=== PATIENT | male | born 1985 | race Caucasian/White ===

== ENCOUNTER 2018-05-29 10:31 | Emergency (ER) | payer MEDICAID, SELFPAY ==
[2018-05-29 10:33] VITALS: BP 118/50; PULSE 63; RESP 14; TEMP 37.2; O2SAT 98
[2018-05-29 10:53] LABS: Bilirubin Negative (Negative); Blood Negative (Negative); Clarity Clear; Glucose Negative (Negative); Ketones Negative (Negative); Leukocyte Esterase Negative (Negative); Nitrite Negative (Negative); pH 6.5 (5-8)
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
[2018-05-29] MEDS: Normal Saline 1,000 ML 1000 ML IV (11:24)
[2018-05-29 11:33] VITALS: BP 100/51; PULSE 62; RESP 18; TEMP 37.1; O2SAT 97
[2018-05-29] MEDS: Omnipaque 350 MG/ML 100 ML BTL IV (11:38)
[2018-05-29 12:18] LABS: Abs Immature Grans 0.01 k/cumm (0.0-0.09); Absolute Basophil Count 0.04 k/cumm (0.0-0.2); Absolute Eosinophil Count 0.22 k/cumm (0.0-0.7); Absolute Lymphocyte Count 0.83 k/cumm (1.2-3.4); Absolute Monocyte Count 0.97 k/cumm (0.11-0.7); Absolute Neutrophil Count 1.77 k/cumm (1.2-6.7); Eosinophils % 5.7; HGB 10.1 g/dL (13.5-17.5); Immature Grans % 0.3; Lymphocytes % 21.6; Mean Corp. HGB Concentration 33.7 g/dL (32.0-36.0); Mean Corpuscular Hemoglobin 39.3 pg (27.0-33.0); Mean Corpuscular Volume 116.7 fL (80-95); Mean Platelet Volume 9.2 fL (8.0-11.0); Monocytes % 25.3; Neutrophils % 46.1; RBC 2.57 m/cumm (4.50-6.00); RBC Distribution Width 14.4 % (11.8-14.1); White Blood Cell Count 3.84 k/cumm (4.4-10.8)
[2018-05-29 12:21] LABS: INR 1.8 (1.0-3.5); Prothrombin Time 17.5 sec (9.3-10.8)
[2018-05-29 12:26] LABS: ALT 32 U/L (12-78); AST 60 U/L (15-37); Albumin 2.4 g/dL (3.4-5.0); Alkaline Phosphatase 217 U/L (46-116); Anion Gap 3.8 mmol/L (3-11); BUN 13 mg/dL (7-18); Bilirubin, Direct 2.13 mg/dL (0.00-0.20); Bilirubin, Total 5.2 mg/dL (0.2-1.0); CO2 32.2 mmol/L (21.0-32.0); CREATININE 1.06 mg/dL (0.70-1.30); Calcium 8.1 mg/dL (8.5-10.1); Chloride 99 mmol/L (98-107); Glucose 83 mg/dL (70-100); Lipase 309 U/L (73-393); Potassium 4.1 mmol/L (3.5-5.1); Sodium 135 mmol/L (136-145); Total Protein 7.5 g/dL (6.4-8.2)
[2018-05-29 12:33] LABS: Platelet Count 65 x1000/uL (130-400)
[2018-05-29 12:34] LABS: Diff Comment PLT Morph Reviewed; Macrocytosis 3+
[2018-05-29 12:35] LABS: Poikilocytes 1+
[2018-05-29 12:55] VITALS: BP 104/51; PULSE 59; RESP 14; TEMP 37.1; O2SAT 98
[2018-05-29 13:00] VITALS: BP 104/51; PULSE 59; RESP 14; TEMP 37.1; O2SAT 98
== END 2018-05-29 13:12 | disposition home or self-care (01) ==
LOC: ER 13:18
PROVIDERS: Emergency Provider Emergency Medicine; PCP Family Medicine
DX: R10.12 Left upper quadrant pain (principal); Y04.8XXA Assault by other bodily force, initial encounter
CPT/HCPCS: 36415; 80053; 80076; 83690; 96360; 99285; 74177; 81003; 85025; 85610; 99284; J3490

== ENCOUNTER 2018-10-01 10:04 | Emergency (ER) | payer MEDICAID, SELFPAY ==
--- NOTE | 2018-10-01 10:10 | NUR.NOTE ---
pt has an ulcer on his posterior left thy. pt states that i change the bandage on it every day but wile i was walking around today the bandage came off so i came to the ER so you could re bandage it for me. but i have supplies to do it at home but i was closer to the hospital as noted by nurse area around ulcer is clean dry warm and nor red or pink
[2018-10-01 10:13] VITALS: PULSE 88; RESP 16; TEMP 37.1; O2SAT 98
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
--- NOTE | 2018-10-01 10:26 | NUR.NOTE ---
pt given supplies for dressing change. dressing changed as per patients statement in regards to how wound care at [facility] recommends it to be changed and how patients treats it at home
[2018-10-01 10:27] VITALS: PULSE 88; RESP 16; TEMP 37.1; O2SAT 98
== END 2018-10-01 10:28 | disposition home or self-care (01) ==
LOC: ER 10:48
PROVIDERS: Emergency Provider Physician Assistant; PCP Family Medicine
DX: L97.129 Non-pressure chronic ulcer of left thigh with unspecified severity (principal)
CPT/HCPCS: 99281

== ENCOUNTER 2018-10-07 10:19 | Emergency (ER) | payer MEDICAID, SELFPAY ==
[2018-10-07 10:23] VITALS: BP 158/75; PULSE 91; RESP 18; TEMP 37.1
--- NOTE | 2018-10-07 10:29 | W.ED.GENAD ---
Discharge Plan Disposition Patient Disposition: HOME Condition: Stable Discharge Details Chief Complaint: GenMedical Clinical Impression: Wound of thigh Primary Care Provider: BRYAN CHÁVEZ ED Provider: Hernando Weldon Home Meds and New Rx's Prescriptions: No Action furosemide 40 mg Tablet 80 mg PO DAILY RF: 0 spironolactone 100 mg Tablet 100 mg PO DAILY RF: 0 nadolol 20 mg Tablet 20 mg PO DAILY RF: 0 potassium 99 mg Tablet 20 mg PO DAILY RF: 0 omeprazole 40 mg Capsule,Delayed Release(Dr/Ec) 40 mg PO DAILY RF: 0 cholecalciferol (vitamin D3) [Vitamin D3] 5,000 unit Tablet 1 tab PO DAILY RF: 0 sertraline [Zoloft] 50 mg Tablet 50 mg PO HS RF: 0 cyanocobalamin (vitamin B-12) [Vitamin B-12] 5,000 mcg Tablet, Sublingual 5,000 units PO DAILY RF: 0 mupirocin 2 % Ointment 1 applic Topical DAILY PRNRF: 0 Discharge Instructions Additional Instructions: There was no evidence of infection on exam follow up as scheduled with your providers at [facility] If you develop worsening pain, fevers or redness spreading away from the wound return to the emergency department Medical Decision Making 32 yo male with hx of cirrhosis and 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 He states he forgot to change his dressing yesterday and wanted someone to evaluate the wound. Denies pain, increased draine or pain. He has about 3cm open wound with no surrounding erythema to the mid lateral/posterior thigh with serosanguionous drainage. No crepitus or pain. No findings to suggest acute infection, will d/c home and he will f/u with [place] [facility] [place] and return here if anything changes Differential Diagnosis chronic wound, cellulitis HPI General Mode of arrival: ambulatory. Date/Time Provider Initiated Documentation: 10/07/18 10:23. Limitations to Documentation: no limitations. Information obtained by: patient. History of Present Illness 32 year old M presents to the emergency department with the chief complaint of left thigh wound, Patient started experiencing this month(s) (6) and it has been constant. No relieving factors improve symptom(s), No exacerbating factors reported . Patient notes no other symptoms.. Related Data Home Medications Medication Instructions Recorded Confirmed cholecalciferol (vitamin D3) 1 tab PO DAILY 05/29/18 05/29/18 [Vitamin D3] cyanocobalamin (vitamin B-12) 5,000 units PO DAILY 05/29/18 05/29/18 [Vitamin B-12] furosemide 80 mg PO DAILY 05/29/18 05/29/18 mupirocin 1 applic TOPICAL DAILY PRN 05/29/18 05/29/18 nadolol 20 mg PO DAILY 05/29/18 05/29/18 omeprazole 40 mg PO DAILY 05/29/18 05/29/18 potassium 20 mg PO DAILY 05/29/18 05/29/18 sertraline [Zoloft] 50 mg PO HS 05/29/18 05/29/18 spironolactone 100 mg PO DAILY 05/29/18 05/29/18 Allergies Allergy/AdvReac Type Severity Reaction Status Date / Time No Known Allergies Allergy Unverified 05/29/18 12:46 General Stated Complaint: GenMedical DESTINY: 4 Review of Systems Review of Systems All systems reviewed & are unremarkable except as noted in HPI and below Constitutional Denies chills and Denies fever(s) Cardiovascular Denies chest pain and Denies dyspnea Respiratory Denies cough and Denies dyspnea Gastrointestinal Denies abdominal pain, Denies nausea and Denies vomiting Genitourinary Denies dysuria Musculoskeletal Denies joint swelling [facility] Medical History Cirrhosis with alcoholism (Acute) Surgical History History of umbilical hernia repair (Acute) Status post debridement (Acute) Social History Smoking and Tabacco status: Current every day alcohol intake: former details: 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 substance use type: marijuana Exam Const General: no acute distress Orientation: alert HENMT Head: normal to inspection Ears: external ears normal General nose exam: external nose normal Mouth: moist mucous membranes Eyes General: appearance normal, both eyes and all related structures Neck Neck: normal visual inspection Resp Effort & Inspection: normal respiratory effort and able to speak in complete sentences Cardio Rate: regular rate Skin General skin exam: no rashes or lesions noted Neuro General: alert and oriented x3 Extrem General: normal capillary refill Psych Mental Status: mental status grossly normal Course Vital Signs Temperature 37.1 C 10/07/18 10:23 Pulse 91 H 10/07/18 10:23 Respiratory Rate 18 10/07/18 10:23 Blood Pressure 158/75 H 10/07/18 10:23 Temperature 37.1 C 10/07/18 10:23 Temperature Source Skin 10/07/18 10:23 Pulse 91 H 10/07/18 10:23 Respiratory Rate 18 10/07/18 10:23 Blood Pressure 158/75 H 10/07/18 10:23 Pain Level 0 10/07/18 10:23
--- NOTE | 2018-10-07 10:37 | ED.GENADUL_ITS ---
Discharge Plan Disposition Patient Disposition: HOME Condition: Stable Discharge Details Chief Complaint: GenMedical Clinical Impression: Wound of thigh Primary Care Provider: BRYAN CHÁVEZ ED Provider: Hernando Weldon Home Meds and New Rx's Prescriptions: No Action furosemide 40 mg Tablet 80 mg PO DAILY RF: 0 spironolactone 100 mg Tablet 100 mg PO DAILY RF: 0 nadolol 20 mg Tablet 20 mg PO DAILY RF: 0 potassium 99 mg Tablet 20 mg PO DAILY RF: 0 omeprazole 40 mg Capsule,Delayed Release(Dr/Ec) 40 mg PO DAILY RF: 0 cholecalciferol (vitamin D3) [Vitamin D3] 5,000 unit Tablet 1 tab PO DAILY RF: 0 sertraline [Zoloft] 50 mg Tablet 50 mg PO HS RF: 0 cyanocobalamin (vitamin B-12) [Vitamin B-12] 5,000 mcg Tablet, Sublingual 5,000 units PO DAILY RF: 0 mupirocin 2 % Ointment 1 applic Topical DAILY PRNRF: 0 Discharge Instructions Additional Instructions: There was no evidence of infection on exam follow up as scheduled with your providers at [facility] If you develop worsening pain, fevers or redness spreading away from the wound return to the emergency department Medical Decision Making 32 yo male with hx of cirrhosis and 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 He states he forgot to change his dressing yesterday and wanted someone to evaluate the wound. Denies pain, increased draine or pain. He has about 3cm open wound with n o surrounding erythema to the mid lateral/posterior thigh with serosanguionous drainage. No crepitus or pain. No findings to suggest acute infection, will d/c home and he will f/u with his [facility] [place] wound providers and return here if anything changes Differential Diagnosis chronic wound, cellulitis HPI General Mode of arrival: ambulatory . Date/Time Provider Initiated Documentation: 10/07/18 10:23 . Limitations to Documentation: no limitations . Information obtained by: patient . History of Present Illness 32 year old M presents to the emergency department with the chief complaint of left thigh wound, Patient started experiencing this month(s) (6) and it has been constant. No relieving factors improve symptom(s), No exacerbating factors reported . Patient notes no other symptoms.. Related Data Home Medications Medication Instructions Recorded Confirmed cholecalciferol (vitamin D3) 1 tab PO DAILY 05/29/18 05/29/18 [Vitamin D3] cyanocobalamin (vitamin B-12) 5,000 units PO DAILY 05/29/18 05/29/18 [Vitamin B-12] furosemide 80 mg PO DAILY 05/29/18 05/29/18 mupirocin 1 applic TOPICAL DAILY PRN 05/29/18 05/29/18 nadolol 20 mg PO DAILY 05/29/18 05/29/18 omeprazole 40 mg PO DAILY 05/29/18 05/29/18 potassium 20 mg PO DAILY 05/29/18 05/29/18 sertraline [Zoloft] 50 mg PO HS 05/29/18 05/29/18 spironolactone 100 mg PO DAILY 05/29/18 05/29/18 Allergies Allergy/AdvReac Type Severity Reaction Status Date / Time No Known Allergies Allergy Unverified 05/29/18 12:46 General Stated Complaint: GenMedical DESTINY: 4 Review of Systems Review of Systems All systems reviewed & are unremarkable except as noted in HPI and below Constitutional Denies chills and Denies fever(s) Cardiovascular Denies chest pain and Denies dyspnea Respiratory Denies cough and Denies dyspnea Gastrointestinal Denies abdominal pain, Denies nausea and Denies vomiting Genitourinary Denies dysuria Musculoskeletal Denies joint swelling [facility] Medical History Cirrhosis with alcoholism (Acute) Surgical History History of umbilical hernia repair (Acute) Status post debridement (Acute) Social History Smoking and Tabacco status: Current every day alcohol intake: former details: 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 substance use type: marijuana Exam Const General: no acute distress Orientation: alert HENMT Head: normal to inspection Ears: external ears normal General nose exam: external nose normal Mouth: moist mucous membranes Eyes General: appearance normal, both eyes and all related structures Neck Neck: normal visual inspection Resp Effort & Inspection: normal respiratory effort and able to speak in complete sentences Cardio Rate: regular rate Skin General skin exam: no rashes or lesions noted Neuro General: alert and oriented x3 Extrem General: normal capillary refill Psych Mental Status: mental status grossly normal Course Vital Signs Temperature 37.1 C 10/07/18 10:23 Pulse 91 H 10/07/18 10:23 Respiratory Rate 18 10/07/18 10:23 Blood Pressure 158/75 H 10/07/18 10:23 Temperature 37.1 C 10/07/18 10:23 Temperature Source Skin 10/07/18 10:23 Pulse 91 H 10/07/18 10:23 Respiratory Rate 18 10/07/18 10:23 Blood Pressure 158/75 H 10/07/18 10:23 Pain Level 0 10/07/18 10:23
== END 2018-10-07 10:46 | disposition home or self-care (01) ==
PROVIDERS: Emergency Provider Emergency Medicine; PCP Family Medicine
DX: S71.102A Unspecified open wound, left thigh, initial encounter (principal); X58.XXXA Exposure to other specified factors, initial encounter
CPT/HCPCS: 99281

== ENCOUNTER 2018-12-19 12:31 | Outpatient (REF) | payer MEDICAID, SELFPAY ==
[2018-12-20 08:58] LABS: HCT 25.8 % (40.0-50.0); HGB 8.1 g/dL (13.5-17.5); Mean Corp. HGB Concentration 31.4 g/dL (32.0-36.0); Mean Corpuscular Hemoglobin 32.4 pg (27.0-33.0); Mean Corpuscular Volume 103.2 fL (80-95); Mean Platelet Volume 10.8 fL (8.0-11.0); Platelet Count 107 x1000/uL (130-400); RBC Distribution Width 18.7 % (11.8-14.1); White Blood Cell Count 3.43 k/cumm (4.4-10.8)
[2018-12-20 09:08] LABS: ALT 26 U/L (12-78); AST 46 U/L (15-37); Albumin 2.6 g/dL (3.4-5.0); Alkaline Phosphatase 207 U/L (46-116); BUN 23 mg/dL (7-18); Bilirubin, Total 3.3 mg/dL (0.2-1.0); CREATININE 1.86 mg/dL (0.70-1.30); Calcium 8.3 mg/dL (8.5-10.1); Chloride 97 mmol/L (98-107); Estimated GFR 42.59 (mL/min/1.73m2); Glucose 171 mg/dL (70-100); Potassium 3.8 mmol/L (3.5-5.1); Sodium 132 mmol/L (136-145); Total Protein 7.8 g/dL (6.4-8.2)
[2018-12-20 09:40] LABS: ETHANOL BLOOD < 3.0 mg/dL (<3)
[2018-12-21 09:58] LABS: Hepatitis C Ab w Rflx HCV PCR Negative (NEGAT)
[2018-12-21 12:29] LABS: Syphilis Serology (RPR) Negative (Negative)
[2018-12-21 15:24] LABS: Chlamydia Result Negative; GC Result Negative; Specimen Description URINE
[2018-12-22 23:08] LABS: Acetone, U Not Detected; Ethanol, U Not Detected; Isopropanol, U Not Detected; Methanol, U Not Detected
== END 2018-12-19 12:51 ==
LOC: NCHCN 12:31
PROVIDERS: PCP Family Medicine; Visit Provider Registered Nurse
DX: F10.20 Alcohol dependence, uncomplicated (principal); K70.30 Alcoholic cirrhosis of liver without ascites; D64.9 Anemia, unspecified; Z11.3 Encounter for screening for infections with a predominantly sexual mode of transmission; Z11.59 Encounter for screening for other viral diseases
CPT/HCPCS: 80053; 80320; 85027; 86803; 87491; 87591; 85610; 86592

== ENCOUNTER 2019-03-10 02:45 | Outpatient (REF) | payer MEDICAID, SELFPAY ==
[2019-03-10 21:09] LABS: INR 1.6 (0.9-1.1); Prothrombin Time 16.2 sec (9.3-11.0)
[2019-03-10 21:36] LABS: ALT 37 U/L (12-78); AST 101 U/L (15-37); Albumin 2.3 g/dL (3.4-5.0); Alkaline Phosphatase 243 U/L (46-116); Anion Gap 8.2 mmol/L (3-11); BUN 19 mg/dL (7-18); Bilirubin, Total 11.5 mg/dL (0.2-1.0); CO2 28.8 mmol/L (21.0-32.0); CREATININE 0.78 mg/dL (0.70-1.30); Calcium 8.2 mg/dL (8.5-10.1); Chloride 104 mmol/L (98-107); Glucose 122 mg/dL (70-100); Potassium 3.7 mmol/L (3.5-5.1); Sodium 141 mmol/L (136-145); Total Protein 7.8 g/dL (6.4-8.2)
== END 2019-03-10 03:05 ==
LOC: LBN 02:45
PROVIDERS: PCP Family Medicine; Visit Provider Registered Nurse
DX: N18.9 Chronic kidney disease, unspecified (principal); K70.31 Alcoholic cirrhosis of liver with ascites; K92.2 Gastrointestinal hemorrhage, unspecified
CPT/HCPCS: 80053; 85025; 85610

== ENCOUNTER 2019-06-09 14:46 | Outpatient (REF) | payer MEDICARE, MEDICAID, SELFPAY ==
[2019-06-09 21:52] LABS: Mean Corp. HGB Concentration 31.3 g/dL (32.0-36.0); Mean Corpuscular Hemoglobin 34.5 pg (27.0-33.0); Mean Corpuscular Volume 110.3 fL (80-95); Mean Platelet Volume 11.3 fL (8.0-11.0); Platelet Count 105 x1000/uL (130-400); RBC 1.65 m/cumm (4.50-6.00); RBC Distribution Width 19.4 % (11.8-14.1); White Blood Cell Count 5.22 k/cumm (4.4-10.8)
[2019-06-09 22:10] LABS: AST 66 U/L (15-37); Albumin 2.1 g/dL (3.4-5.0); Alkaline Phosphatase 182 U/L (46-116); Anion Gap 6.4 mmol/L (3-11); BUN 28 mg/dL (7-18); Bilirubin, Total 7.1 mg/dL (0.2-1.0); CO2 28.6 mmol/L (21.0-32.0); CREATININE 1.34 mg/dL (0.70-1.30); Calcium 7.9 mg/dL (8.5-10.1); Chloride 94 mmol/L (98-107); Glucose 207 mg/dL (70-100); Sodium 129 mmol/L (136-145); Total Protein 7.1 g/dL (6.4-8.2)
[2019-06-09 22:14] LABS: HCT 18.2 % (40.0-50.0); HGB 5.7 g/dL (13.5-17.5)
[2019-06-09 22:34] LABS: INR 1.7 (0.9-1.1); Prothrombin Time 17.2 sec (9.3-11.0)
[2019-06-09 22:41] LABS: ALT 35 U/L (16-63); Hemoglobin A1C < 4.5 % (4.5-6.2)
== END 2019-06-09 15:06 ==
LOC: NCHCN 14:46
PROVIDERS: PCP Family Medicine; Visit Provider Registered Nurse
DX: K70.30 Alcoholic cirrhosis of liver without ascites (principal); E11.9 Type 2 diabetes mellitus without complications
CPT/HCPCS: 80053; 85027; 83036; 85610

== ENCOUNTER 2019-07-26 11:58 | Outpatient (REF) | payer MEDICARE, MEDICAID, SELFPAY ==
[2019-07-26 22:24] LABS: Abs Immature Grans 0.02 k/cumm (0.0-0.09); Absolute Basophil Count 0.04 k/cumm (0.0-0.2); Absolute Eosinophil Count 0.16 k/cumm (0.0-0.7); Absolute Lymphocyte Count 0.48 k/cumm (1.2-3.4); Absolute Monocyte Count 0.79 k/cumm (0.11-0.7); Absolute Neutrophil Count 1.53 k/cumm (1.2-6.7); Basophils % 1.3; Eosinophils % 5.3; HGB 8.7 g/dL (13.5-17.5); Immature Grans % 0.7; Lymphocytes % 15.9; Mean Corp. HGB Concentration 32.2 g/dL (32.0-36.0); Mean Corpuscular Hemoglobin 34.1 pg (27.0-33.0); Mean Corpuscular Volume 105.9 fL (80-95); Mean Platelet Volume 11.4 fL (8.0-11.0); Monocytes % 26.2; Neutrophils % 50.6; RBC 2.55 m/cumm (4.50-6.00); RBC Distribution Width 20.5 % (11.8-14.1); White Blood Cell Count 3.02 k/cumm (4.4-10.8)
[2019-07-26 22:42] LABS: ALT 33 U/L (16-63); AST 64 U/L (15-37); Alkaline Phosphatase 181 U/L (46-116); Anion Gap 9.4 mmol/L (3-11); BUN 9 mg/dL (7-18); CO2 25.6 mmol/L (21.0-32.0); CREATININE 1.04 mg/dL (0.70-1.30); Calcium 7.3 mg/dL (8.5-10.1); Chloride 102 mmol/L (98-107); Glucose 116 mg/dL (74-106); Magnesium 1.3 mg/dL (1.8-2.4); PHOSPHORUS 2.9 mg/dL (2.6-4.7); Potassium 3.2 mmol/L (3.5-5.1); Sodium 137 mmol/L (136-145); Total Protein 7.7 g/dL (6.4-8.2)
[2019-07-26 22:43] LABS: Anisocytosis 2+; Platelet Count 80 x1000/uL (130-400)
[2019-07-26 22:44] LABS: Burr Cells (echinocyte) 2+; Hypochromasia 1+; Macrocytosis 2+; Polychromasia Present
== END 2019-07-26 12:18 ==
LOC: NCHCN 11:58
PROVIDERS: PCP Family Medicine; Visit Provider Registered Nurse
DX: D62 Acute posthemorrhagic anemia (principal); E11.9 Type 2 diabetes mellitus without complications; E83.39 Other disorders of phosphorus metabolism; E83.42 Hypomagnesemia
CPT/HCPCS: 80053; 83735; 84100; 85025

== ENCOUNTER 2019-08-14 11:07 | Outpatient (REF) | payer MEDICARE, MEDICAID, SELFPAY ==
[2019-08-14 22:57] LABS: HGB 7.9 g/dL (13.5-17.5); Mean Corp. HGB Concentration 31.6 g/dL (32.0-36.0); Mean Corpuscular Hemoglobin 33.3 pg (27.0-33.0); Mean Corpuscular Volume 105.5 fL (80-95); Mean Platelet Volume 10.6 fL (8.0-11.0); Platelet Count 104 x1000/uL (130-400); RBC 2.37 m/cumm (4.50-6.00); RBC Distribution Width 21.8 % (11.8-14.1); White Blood Cell Count 8.55 k/cumm (4.4-10.8)
[2019-08-14 23:02] LABS: ALT 33 U/L (16-63); AST 47 U/L (15-37); Alkaline Phosphatase 183 U/L (46-116); Anion Gap 6.2 mmol/L (3-11); BUN 22 mg/dL (7-18); Bilirubin, Total 9.2 mg/dL (0.2-1.0); CO2 31.8 mmol/L (21.0-32.0); CREATININE 1.32 mg/dL (0.70-1.30); Chloride 101 mmol/L (98-107); Glucose 119 mg/dL (74-106); Potassium 3.4 mmol/L (3.5-5.1); Sodium 139 mmol/L (136-145); Total Protein 7.5 g/dL (6.4-8.2)
== END 2019-08-14 11:27 ==
LOC: NCHCN 11:07
PROVIDERS: PCP Family Medicine; Visit Provider Nurse Practitioner Family
DX: D62 Acute posthemorrhagic anemia (principal); K70.30 Alcoholic cirrhosis of liver without ascites; F10.20 Alcohol dependence, uncomplicated; Z87.448 Personal history of other diseases of urinary system
CPT/HCPCS: 80053; 85027